=== PATIENT | female | born 1960 | race Caucasian/White ===

== ENCOUNTER 2022-05-02 22:31 | Emergency (ER) | payer OTHER ==
[~2022-05-02] VITALS: Ht 162.6 cm; Wt 72.7 kg
[2022-05-02] MEDS ORDERED: NEURONTIN300 M1 (22:43)
[2022-05-02] MEDS ORDERED: PROAIR HFA0.09 MG/AC (22:44)
[2022-05-02] MEDS ORDERED: KAPSPARGO SPRIN25 MG (22:45)
[2022-05-02] MEDS ORDERED: ANTI-ITCH28 GM (22:46)
[2022-05-02] MEDS ORDERED: LINZESS290 MCG PO (23:15)
[2022-05-02] MEDS ORDERED: NEURONTIN300 M1 PO (23:16)
[2022-05-02] MEDS ORDERED: HYDROXYZINE HCL25 M1 PO (23:17)
[2022-05-02] MEDS ORDERED: BENTYL 20MG20 MG/TAB PO (23:17)
[2022-05-02] MEDS ORDERED: MELOXICAM15 MG PO (23:17)
[2022-05-02] MEDS ORDERED: SINEQUAN 5050 MG/CAP PO (23:17)
[2022-05-02] MEDS ORDERED: LEXAPRO20 M1 PO (23:18)
[2022-05-02] MEDS ORDERED: FAMOTIDINE20 MG PO (23:18)
[2022-05-02] MEDS ORDERED: CYCLOBENZAPRINE10 M1 PO (23:19)
[2022-05-02] MEDS ORDERED: ZETIA10 M1 PO (23:19)
[2022-05-02] MEDS ORDERED: PROTONIX20 M1 PO (23:19)
[2022-05-02] MEDS ORDERED: LYRICA 150MG C150 MG PO (23:19)
[2022-05-02] MEDS ORDERED: LIPITOR 80MG80 MG PO (23:20)
[2022-05-02] MEDS ORDERED: RT SPIRIVA INH18 MCG IH (23:20)
[2022-05-02] MEDS ORDERED: B COMPLEX1 EACH PO (23:21)
[2022-05-02] MEDS ORDERED: NATURAL IRON65 MG PO (23:21)
[2022-05-02] MEDS ORDERED: FLUTICASON0.05 MG/AC NS (23:21)
[2022-05-02] MEDS ORDERED: POTASSIUM99 M3 PO (23:22)
[2022-05-02] MEDS ORDERED: ONE DAILY WOME1 EACH PO (23:22)
[2022-05-02] MEDS ORDERED: MOVE FREE JOIN1 EACH PO (23:22)
[2022-05-02] MEDS ORDERED: MUPIROCIN22 TP (23:23)
[2022-05-02] MEDS ORDERED: DICLOFENAC SOD100 GM TP (23:23)
[2022-05-02] MEDS ORDERED: FLUTICASONE-SA1 EAC3 IH (23:24)
[2022-05-02 23:29] LABS: EOS # 0.28 K/mm3 (0.04-0.40); EOS % 2.5 % (1.0-5.0); HEMATOCRIT 37.5 % (37.0-47.0); HEMOGLOBIN 12.7 g/dL (12.5-16.0); MEAN CELL VOLUME 88 fl (78-100); MEAN CORPUSCULAR HEMOGLOBIN 30 pg (27-31); MEAN CORPUSCULAR HGB CONC 34 g/dL (33-37); MEAN PLATELET VOLUME 10.2 fl (7.4-10.4); MONO # 0.82 K/mm3 (0.20-0.80); NEU # 7.17 K/mm3 (1.40-6.50); PLATELET COUNT 299 K/mm3 (130-400); RED BLOOD COUNT 4.25 M/mm3 (4.10-5.30); RED CELL DISTRIBUTION WIDTH 13.6 % (11.5-14.5); WHITE BLOOD COUNT 11.4 K/mm3 (4.8-10.8)
[2022-05-02 23:37] LABS: ALBUMIN 4.2 g/dL (3.5-5.0); POTASSIUM 3.5 mmol/L (3.5-5.1); SODIUM 143 mmol/L (136-145)
[2022-05-02 23:38] LABS: CALCIUM 9.4 mg/dL (8.3-10.5)
[2022-05-02 23:39] LABS: GLUCOSE 113 mg/dL (65-105)
[2022-05-02 23:40] LABS: TOTAL PROTEIN 6.6 g/dL (6.4-8.3)
[2022-05-02 23:41] LABS: CARBON DIOXIDE 21 mmol/L (22-29); TOTAL BILIRUBIN 0.5 mg/dL (0.2-1.2)
[2022-05-02 23:45] LABS: AST-SGOT 75 U/L (5-34)
[2022-05-02 23:46] LABS: ALT/SGPT 51 U/L (0-55)
[2022-05-02 23:56] LABS: TROPONIN-I < 0.030 ng/mL (<0.030)
[2022-05-03 00:23] LABS: URINE COLOR YELLOW
[2022-05-03 00:24] LABS: PH-URINE 5.5 (5.0 - 8.0); URINE APPEARANCE HAZY; URINE BILIRUBIN NEGATIVE (NEGATIVE); URINE BLOOD NEGATIVE (NEGATIVE); URINE GLUCOSE NEGATIVE (NEGATIVE); URINE KETONE NEGATIVE (NEGATIVE); URINE LEUKOCYTE ESTERASE TRACE (NEGATIVE); URINE NITRATE NEGATIVE (NEGATIVE); URINE PROTEIN(semi-quant) NEGATIVE (NEGATIVE); URINE UROBILINOGEN NORMAL (NORMAL)
[2022-05-03 00:52] LABS: D-DIMER 0.75 mg/L FEU (0.15-0.50)
[2022-05-03 02:45] VITALS: BP 124/85
== END 2022-05-03 02:45 ==
LOC: ED 22:31
PROVIDERS: Nurse Practitioner
DX: F41.9 Anxiety disorder, unspecified (principal); R07.89 Other chest pain; Z28.310 Unvaccinated for COVID-19; Z20.822 Contact with and (suspected) exposure to COVID-19; Z91.040 Latex allergy status; Z87.891 Personal history of nicotine dependence
CPT/HCPCS: J2060; Q9967

== ENCOUNTER 2022-05-19 09:23 | Emergency (ER) | payer MEDICARE, MEDICAID ==
[~2022-05-19 09:23] MED LIST: ANTI-ITCH28 GM; B COMPLEX1 EACH PO; BENTYL 20MG20 MG/TAB PO; CYCLOBENZAPRINE10 M1 PO; DICLOFENAC SOD100 GM TP; FAMOTIDINE20 MG PO; FLUTICASON0.05 MG/AC NS; FLUTICASONE-SA1 EAC3 IH; HYDROXYZINE HCL25 M1 PO; KAPSPARGO SPRIN25 MG; LEXAPRO20 M1 PO; LINZESS290 MCG PO; LIPITOR 80MG80 MG PO; LYRICA 150MG C150 MG PO; MELOXICAM15 MG PO; MOVE FREE JOIN1 EACH PO; MUPIROCIN22 TP; NATURAL IRON65 MG PO; NEURONTIN300 M1; NEURONTIN300 M1 PO; ONE DAILY WOME1 EACH PO; POTASSIUM99 M3 PO; PROAIR HFA0.09 MG/AC; PROTONIX20 M1 PO; RT SPIRIVA INH18 MCG IH; SINEQUAN 5050 MG/CAP PO; ZETIA10 M1 PO
[2022-05-19 09:30] VITALS: BP 121/87
[2022-05-19] MEDS ORDERED: CLEOCIN HCL300 MG PO (10:47)
[2022-05-19] MEDS ORDERED: CEFDINIR300 MG PO (10:47)
== END 2022-05-19 11:22 | disposition home or self-care (01) ==
LOC: ED 09:23
DX: S61.452A Open bite of left hand, initial encounter (principal); F17.200 Nicotine dependence, unspecified, uncomplicated; Z91.040 Latex allergy status; Z88.0 Allergy status to penicillin; Z28.310 Unvaccinated for COVID-19; Z23 Encounter for immunization; W54.0XXA Bitten by dog, initial encounter
CPT/HCPCS: 90715